=== PATIENT | male | born 1970 | race Caucasian/White ===

== ENCOUNTER 2018-01-19 07:59 | Emergency (ER) | payer OTHER ==
[2018-01-19] MEDS ORDERED: SODIUM CHLORIDE 0.9% 1,000 ML IV ONE (08:47)
[2018-01-19] MEDS ORDERED: DEXAMETHASONE 10 MG/ML VIAL IVP STA (08:47)
[2018-01-19] MEDS ORDERED: cefTRIAXone 1 GM in SODIUM CHLORIDE 0.9% MINIBAG 100 ML IV STA (08:47)
--- NOTE | 2018-01-19 08:50 | ED Physician Documentation ---
PD HPI URI - Stated complaint Stated Complaint: FLU LIKE SX - Chief complaint Chief Complaint: Resp - History obtained from History obtained from: Patient, Family - History of Present Illness Timing - onset: How many days ago (2) Timing duration: Days (2) Timing details: Gradual onset, Still present Associated symptoms: Fever, Chills, Sweats, Nasal congestion, Rhinorrhea, Productive cough Contributing factors: Sick contact Improves by: Rest, Medication Similar symptoms before: Diagnosis (URI) Recently seen: Not recently seen - Additional information Additional information: 47-year-old male was sick last month with a cough congestion and fever that resolved. He has had a second illness beginning 2 days ago which is worse for him he has cough congestion fever. Review of Systems Constitutional: reports: Fever Eyes: denies: Decreased vision Ears: denies: Ear pain Nose: reports: Rhinorrhea / runny nose, Congestion Throat: reports: Sore throat Cardiac: denies: Chest pain / pressure, Palpitations Respiratory: reports: Cough. denies: Dyspnea GI: reports: Abdominal Pain. denies: Nausea, Vomiting : denies: Dysuria, Frequency Skin: denies: Rash Musculoskeletal: denies: Neck pain, Back pain, Extremity pain PD PAST MEDICAL HISTORY - Past Medical History Musculoskeletal: Osteoarthritis - Past Surgical History Past Surgical History: No Ortho: Rotator cuff repair - Present Medications Home Medications: Ambulatory Orders Medication Instructions Recorded Confirmed Azithromycin [Zithromax] 250 mg PO DAILY #6 tablet 01/19/18 Oseltamivir [Tamiflu] 75 mg PO BID #10 capsule 01/19/18 - Allergies Allergies/Adverse Reactions: Allergies Allergy/AdvReac Type Severity Reaction Status Date / Time Penicillins Allergy Unknown Verified 01/19/18 08:09 - Social History Does the pt smoke?: No Smoking Status: Never smoker Does the pt drink ETOH?: Yes Does the pt have substance abuse?: No - Immunizations Immunizations are current?: Yes - POLST Patient has POLST: No PD ED PE NORMAL - Vitals Vital signs reviewed: Yes (hypesrtensive) - General General: Alert and oriented X 3, Well developed/nourished - HEENT HEENT: Atraumatic, PERRL, EOMI, Other (dry mucous membranes left TM is inflamed centrally with distortion of the umbo. Pharynx is with mild erythema. ) - Neck Neck: Supple, no meningeal sign, No bony TTP - Cardiac Cardiac: RRR, No murmur - Respiratory Respiratory: No respiratory distress, Clear bilaterally - Abdomen Abdomen: Soft, Non tender - Back Back: No CVA TTP, No spinal TTP - Derm Derm: Normal color, Warm and dry, No rash - Extremities Extremities: No deformity, No edema - Neuro Neuro: No motor deficit, No sensory deficit Eye Opening: Spontaneous Motor: Obeys Commands Verbal: Oriented GCS Score: 15 - Psych Psych: Normal mood, Normal affect Results - Vitals Vitals: Vital Signs - 24 hr 01/19/18 01/19/18 08:03 09:00 Temperature 38.8 C H 39.0 C H Heart Rate 86 88 Respiratory 20 18 Rate Blood Pressure 146/72 H 139/75 H O2 Saturation 97 98 Oxygen O2 Source Room air - Labs Labs: Laboratory Tests 01/19/18 01/19/18 01/19/18 08:10 08:30 08:30 WBC 8.3 RBC 5.13 Hgb 12.3 L Hct 38.2 L MCV 74.5 L MCH 24.0 L MCHC 32.2 RDW 17.5 H Plt Count 216 MPV 8.1 Neut # 6.2 Lymph # 1.3 L [place] # 0.8 Eos # 0.0 Baso # 0.1 Absolute Nucleated RBC 0.00 Nucleated RBC % 0.0 Sodium 136 Potassium 3.8 Chloride 103 Carbon Dioxide 22 Anion Gap 11.0 BUN 15 Creatinine 1.3 H Estimated GFR (MDRD) 59 L Glucose 121 H Calcium 8.9 Total Bilirubin 0.5 AST 35 ALT 50 Alkaline Phosphatase 144 H Total Protein 7.7 Albumin 4.1 Globulin 3.6 Albumin/Globulin Ratio 1.1 Lipase 27 Influenza A (Rapid) Negative Influenza B (Rapid) POSITIVE H Influenza Types A,B Ag + H Procedures - IVC sono (time) 0845 Bedside IVC sono: IVC measures (cm), IVC collapsed c insp (cm) (complete), Dehydration (est 1.5 liter deficit) PD MEDICAL DECISION MAKING - ED course Complexity details: reviewed old records, reviewed results, re-evaluated patient , considered differential, d/w patient, d/w family ED course: 47-year-old male with bimodal illness appears now to have left otitis media. He appears dehydrated he has had a fever for 2 days and an IV is begun he is given intravenous saline Rocephin and dexamethasone. He has influenza B + on his screen as well. Departure - Departure Disposition: 01 Home, Self Care Clinical Impression: Dehydration, Influenza B Otitis media Qualifiers: Otitis media type: suppurative Chronicity: acute Laterality: left Recurrence: not specified as recurrent Spontaneous tympanic membrane rupture: without spontaneous rupture Qualified Code(s): H66.002 - Acute suppurative otitis media without spontaneous rupture of ear drum, left ear Condition: Stable Instructions: ED Dehydration, ED Otitis Media Acute Adult Follow-Up: [facility] [Provider Group] Prescriptions: Azithromycin [Zithromax] 250 mg PO DAILY #6 tablet Oseltamivir [Tamiflu] 75 mg PO BID #10 capsule Forms: Activity restrictions
[2018-01-19 08:58] LABS: BASOPHILS # (AUTO) 0.1 10^3/uL (0.0-0.1); BASOPHILS % (AUTO) 0.8 %; EOSINOPHILS % (AUTO) 0.2 %; HGB - HEMOGLOBIN 12.3 g/dL (14.0-18.0); LYMPHOCYTES # (AUTO) 1.3 10^3/uL (1.5-3.5); LYMPHOCYTES % (AUTO) 15.4 %; MEAN CORPUSCULAR HGB CONC 32.2 g/dL (32.0-36.0); MEAN CORPUSCULAR VOLUME 74.5 fL (80.0-94.0); MEAN PLATELET VOLUME 8.1 fL (7.4-11.4); MONOCYTES # (AUTO) 0.8 10^3/uL (0.0-1.0); MONOCYTES % (AUTO) 9.5 %; NEUTROPHILS # (AUTO) 6.2 10^3/uL (1.5-6.6); NEUTROPHILS % (AUTO) 74.1 %; PLT - PLATELET COUNT 216 10^3/uL (130-450); RED BLOOD COUNT 5.13 10^6/uL (4.70-6.10); RED CELL DISTRIBUTION WIDTH 17.5 % (12.0-15.0); WHITE BLOOD COUNT 8.3 x10^3/uL (4.8-10.8)
[2018-01-19 09:13] LABS: ALBUMIN 4.1 g/dL (3.2-5.5); ALBUMIN/GLOBULIN RATIO 1.1 (1.0-2.2); BILIRUBIN,TOTAL 0.5 mg/dL (0.2-1.0); CALCIUM 8.9 mg/dL (8.5-10.3); CREATININE 1.3 mg/dL (0.6-1.2); TOTAL PROTEIN 7.7 g/dL (6.7-8.2)
[2018-01-19] MEDS ORDERED: ACETAMINOPHEN 325 MG TABLET PO STA (09:43)
[2018-01-19 10:02] VITALS: BP 136/74
== END 2018-01-19 10:16 | disposition home or self-care (01) ==
LOC: ED 07:59
DX: E86.0 Dehydration (principal); J10.1 Influenza due to other identified influenza virus with other respiratory manifestations; H66.002 Acute suppurative otitis media without spontaneous rupture of ear drum, left ear
CPT/HCPCS: 36415; 80053; 83690; 85025; 87275; 87276; 96365; 96375; 99283; 99284; A9270

== ENCOUNTER 2024-03-26 09:09 | Emergency (ER) | payer OTHER ==
[2024-03-26 09:19] VITALS: O2SAT 98
--- NOTE | 2024-03-26 10:41 | ED Physician Documentation ---
History of Present Illness - Stated complaint Stated Complaint: RT LEG SWELLING/PX - Chief complaint Chief Complaint: Ext Problem - History obtained from History obtained from: Patient - Additonal information Additional information: Patient is a 54-year-old male presenting for evaluation of right leg swelling and pain that has been present for a few weeks. No history of PE or DVT. No reported trauma. Patient states he uses the elliptical daily. No fevers.No chest pain or shortness of air. Review of Systems Cardiac: denies: Chest pain / pressure Respiratory: denies: Dyspnea Musculoskeletal: reports: Extremity swelling PD PAST MEDICAL HISTORY - Past Medical History Past Medical History: Yes Cardiovascular: Hypertension Musculoskeletal: Osteoarthritis - Past Surgical History Past Surgical History: Yes Ortho: Rotator cuff repair - Present Medications Home Medications: Ambulatory Orders Medication Instructions Recorded Confirmed Amlodipine Besylate/Benazepril 1 each PO DAILY 03/26/24 03/26/24 [Amlodipine-Benazepril 5-20 mg] - Allergies Allergies/Adverse Reactions: Allergies Allergy/AdvReac Type Severity Reaction Status Date / Time Penicillins Allergy Unknown Verified 03/26/24 09:19 - Social History Does the pt smoke?: No Smoking Status: Never smoker Does the pt drink ETOH?: Yes Does the pt have substance abuse?: No - Immunizations Immunizations are current?: Yes - POLST Patient has POLST: No PD ED PE NORMAL - General General: Alert and oriented X 3, No acute distress, Well developed/nourished - HEENT HEENT: Atraumatic - Cardiac Cardiac: RRR, Strong equal pulses - Respiratory Respiratory: No respiratory distress, Clear bilaterally - Derm Derm: Warm and dry, No rash - Extremities Extremities: Other (Swelling to right lower extremity, no erythema, distal pulses intact, compartments are soft, no bony tenderness to the knee,) - Neuro Neuro: Alert and oriented X 3, No motor deficit, No sensory deficit, Normal speech Results - Vitals Vitals: Vital Signs - 24 hr 03/26/24 03/26/24 09:16 11:34 Temperature 36.3 C L 36.7 C Heart Rate 51 L 52 L Respiratory 20 18 Rate Blood Pressure 170/88 H 147/79 H O2 Saturation 98 98 Oxygen O2 Source Room air PD Medical Decision Making - ED course ED course: Patient with right lower extremity swelling and pain. Distal pulses intact. No trauma. No signs of infection. Compartments are soft. Ultrasound was obtained which is negative for DVT. Patient already has a compression stocking on. Encouraged continued use of the compression stocking. He has been continuing to use the elliptical despite discomfort in the extremities so did advise backing off on physical activity this weekend along with use of anti-inflammatories and elevation to see if this helps improve his symptoms. Patient counseled on need for follow-up with primary care provider. Patient is also advised on concerning symptoms to return for. Departure - Departure Disposition: 01 Home, Self Care Clinical Impression: Right leg swelling Condition: Stable Instructions: ED Leg Swelling Unilateral Comments: You were evaluated for swelling and pain in your right leg. The ultrasound does not show a blood clot or DVT. However you do have some fluid collections Along both sides of the knee. I would recommend taking it easy this weekend as you have been having pain with activity and would recommend continued use of the compression garment along with anti-inflammatory such as acetaminophen, ibuprofen or naproxen. Forms: PCP List Discharge Date/Time: 03/26/24 11:34
--- NOTE | 2024-03-26 11:10 | Ultrasound Report ---
PROCEDURE: Duplex Ext Veins Right INDICATIONS: swelling/pain TECHNIQUE: Real-time imaging, as well as color and pulse Doppler interrogation, were performed of the lower extr emity deep veins from the inguinal ligament to the popliteal fossa. Attempted visualization of the ca lf veins was performed. COMPARISON: None. FINDINGS: The deep veins are normally compressible, and free of intraluminal thrombus. Color and pu lse Doppler demonstrate normal phasic intraluminal flow. There is normal augmentation response to di stal compression maneuver. Small fluid collection measures 6.6 x 1.6 x 2.8 cm in size in anteromedial aspect of right distal thi gh soft tissue superior to the right knee joint and show no internal vascularity. IMPRESSION: 1. No deep venous thrombosis of the visualized lower extremity. 2. Small fluid collection in deep soft tissue of anteromedial distal thigh above the right knee joint and corresponds to patient's reported area of pain which may represent an organizing hematoma, sugge st clinical correlation and follow-up. Reviewed by: Aren Aguilar MD on 03/26/2024 11:09 AM PDT Approved by: Aren Aguilar MD on 03/26/2024 11:09 AM PDT Station ID: [id number]
[2024-03-26 11:36] VITALS: BP 147/79
== END 2024-03-26 11:34 | disposition home or self-care (01) ==
LOC: ED 09:09
DX: R60.0 Localized edema (principal)
CPT/HCPCS: 99283; 99284